=== PATIENT | female | born 1980 | race Caucasian/White ===

== ENCOUNTER → 2017-10-24 | Outpatient (CLI) | payer OTHER ==
[~2017-10-24] MED LIST: CALC500T6 PO; CALC625T69 PO; GLUC100026 PO; LOR5/325 PO; VITAMIN B1 PO
--- NOTE | 2017-10-24 16:38 | RADIOLOGY IMAGING REPORT ---
FACILITY: [facility] - [place] PATIENT NAME: NEEL PIEDRA : [id number] MR: [id number] V: [id number] EXAM DATE: [id number] ORDERING PHYSICIAN: PRESLEY CULP TECHNOLOGIST: Ayla Lopez PROCEDURE:BILATERAL DIAGNOSTIC DIGITAL MAMMOGRAM WITH CAD ASSISTED INTERPRETATION & 3D TOMOSYNTHESIS COMPARISON:Prior mammograms 05/24/17, 11/19/16. INDICATIONS:6 MO F/U RIGHT BREAST AND NEW PALPABLE LESION UPPER OUTER QUADRANT LEFT BREAST. FINDINGS: Dense heterogeneous fibroglandular tissue is seen throughout the breasts. The parenchymal pattern has remained stable allowing for difference in mammographic technique & patient positioning. There is no demonstration of malignant appearing mass, malignant appearing calcifications or other secondary sign of malignancy in either breast. Today's Left breast Ultrasound revealed two cysts in the upper outer quadrant of the Left breast likely accounting for patient's palpable findings. Today's Right breast Ultrasound demonstrated the stability of the ovoid hypoechoic mass 8 o'clock position. DIAGNOSTIC CATEGORY 3--PROBABLY BENIGN FINDING. RECOMMENDATIONS: SIX MONTH FOLLOW-UP ULTRASOUND: RIGHT BREAST. IMPRESSION: BIRADS 3: Probably benign finding 6Month follow-up Right breast Ultrasound is recommended to document stability of the ovoid nodular density 8 o'clock position of the Right breast as detailed in Today's Right breast Ultrasound report. Dictated by: Alessia Campuzano M.D. on 10/24/2017 at 15:58 Transcribed by: [email or web address] on 10/24/2017 at 16:16 Approved by: Alessia Campuzano M.D. on 10/24/2017 at 16:37 [facility]
--- NOTE | 2017-10-25 14:42 | RADIOLOGY IMAGING REPORT ---
FACILITY: [facility] PATIENT NAME: NEEL PIEDRA : [id number] MR: [id number] V: [id number] EXAM DATE: [id number] ORDERING PHYSICIAN: PRESLEY CULP TECHNOLOGIST: Jane Burrell PROCEDURE:US RIGHT BREAST COMPARISON:Right Breast Ultrasound of 05/24/17 INDICATIONS:6 mo f/u Right breast mass 8:00 o'clock position FINDINGS: In the 8 o'clock position of the Right breast there is a well circumscribed ovoid hypoechoic nodule measuring 7.3 x 4.2 x 6.8mm relatively unchanged. In the 2 o'clock position of the Right breast there is a 6.3mm cyst. DIAGNOSTIC CATEGORY 3--PROBABLY BENIGN FINDING. RECOMMENDATIONS: SIX MONTH FOLLOW-UP ULTRASOUND: RIGHT BREAST. IMPRESSION: BIRADS 3: Probably benign finding Ovoid well circumscribed hypoechoic nodule 8 o'clock position of the Right breast appears relatively stable when compared to the prior study from 05/24/17. 6 month follow-up Right breast Ultrasound is recommended to document stability over a 2 year period given the solid nature. Dictated by: Alessia Campuzano M.D. on 10/24/2017 at 15:55 Transcribed by: LIZET on 10/25/2017 at 13:08 Approved by: Alessia Campuzano M.D. on 10/25/2017 at 14:41 [facility]
--- NOTE | 2017-10-25 14:43 | RADIOLOGY IMAGING REPORT ---
FACILITY: [facility] - [place] PATIENT NAME: NEEL PIEDRA : [id number] MR: [id number] V: [id number] EXAM DATE: [id number] ORDERING PHYSICIAN: PRESLEY CULP TECHNOLOGIST: Jane Burrell PROCEDURE:US LEFT BREAST COMPARISON:None. INDICATIONS:Palpable Lump Upper Outer Quadrant of the Left Breast. FINDINGS: There is a 5.2 x 2.5 x 6.3mm cyst in the 2 o'clock position of the Left breast and a 5.2 x 3.4 x 6.5mm cyst in the 1 o'clock position of the Left breast these finding likely account for patient's palpable abnormality. DIAGNOSTIC CATEGORY 2--BENIGN FINDING. RECOMMENDATIONS: CLINICAL EVALUATION. IMPRESSION: BIRADS 2: Benign finding There are 2 cysts identified in the 1 & 2 o'clock positions Left breast likely accounting for patient's palpable findings. Dictated by: Alessia Campuzano M.D. on 10/24/2017 at 15:53 Transcribed by: [email or web address] on 10/25/2017 at 10:21 Approved by: Alessia Campuzano M.D. on 10/25/2017 at 14:42 [facility]
== END ==
LOC: MAMO 01:39
PROVIDERS: ATTEND Obstetrics & Gynecology
DX: N60.02 Solitary cyst of left breast (principal); N63.13 Unspecified lump in the right breast, lower outer quadrant
CPT/HCPCS: 77066

== ENCOUNTER → 2018-05-08 | Outpatient (CLI) | payer OTHER ==
--- NOTE | 2018-05-09 11:27 | RADIOLOGY IMAGING REPORT ---
FACILITY: [facility] PATIENT NAME: NEEL PIEDRA : [id number] MR: [id number] V: [id number] EXAM DATE: [id number] ORDERING PHYSICIAN: PRESLEY CULP TECHNOLOGIST: Jeremy Lewis RDMS, [facility] PROCEDURE:US RIGHT BREAST COMPARISON:Right breast Ultrasound 10/24/17, 05/24/17, 11/19/16. INDICATIONS:6 MO F/U FINDINGS: There is a cluster of cysts in the 10 o'clock position of the Right breast 7cm from the nipple collectively measuring approximately 1.8 x 0.8cm. In the 7 o'clock position of the Right breast 3cm from the nipple there is a solid ovoid hypoechoic nodule measuring 7.4 x 4.3 x 6.6mm this nodule is wider than tall. There is no acoustic shadowing. This nodule appears to have remained stable when compared to the prior mammograms dating back to 11/19/16. A 6 month follow-up Right breast Ultrasound is recommended to document stability over a 2 year period. DIAGNOSTIC CATEGORY 3--PROBABLY BENIGN FINDING. RECOMMENDATIONS: SIX MONTH FOLLOW-UP ULTRASOUND: RIGHT BREAST. IMPRESSION: BIRADS 3: Probably benign finding. A 6 month follow-up Right breast Ultrasound is recommended to document stability of the ovoid hypoechoic mass 7 o'clock position of the Right breast as described above. Dictated by: Alessia Campuzano M.D. on 05/08/2018 at 16:43 Transcribed by: LIZET on 05/09/2018 at 8:10 Approved by: Alessia Campuzano M.D. on 05/09/2018 at 11:26 [facility]
== END ==
LOC: MAMO 00:28
PROVIDERS: ATTEND Obstetrics & Gynecology
DX: R92.2 Inconclusive mammogram (principal)

== ENCOUNTER → 2019-01-09 | Outpatient (CLI) | payer OTHER ==
--- NOTE | 2019-01-09 14:54 | RADIOLOGY IMAGING REPORT ---
FACILITY: [facility] [place] PATIENT NAME: NEEL PIEDRA : [id number] MR: [id number] V: [id number] EXAM DATE: ORDERING PHYSICIAN: PRESLEY CULP TECHNOLOGIST: Sabra Solomon RDMS(ABD,OBGYN,BR),RVT PROCEDURE:US RIGHT BREAST COMPARISON:Prior Right breast Ultrasound 05/08/18, 10/24/17, 05/24/17, 11/19/16 INDICATIONS:6M FU AREA SCANNED: Right breast was scanned in the 6-11 o'clock position FINDINGS: In the 10 o'clock position of the Right breast again noted is a cluster of simple appearing cysts. In the 7 o'clock position of the Right breast 3cm from the nipple again noted is an ovoid circumscribed hypoechoic nodule measuring approximately 7.7 x 4.4 x 7mm & is relatively unchanged in size when measured in the same tissue planes dating back to 11/19/16. The mass is wider than tall. There is no acoustic shadowing. This likely represents a fibroadenoma. DIAGNOSTIC CATEGORY 2--BENIGN FINDING. RECOMMENDATIONS: CLINICAL EVALUATION. IMPRESSION: BIRADS 2: Benign finding. Ovoid hypoechoic mass in the 7 o'clock position Right breast has remained relatively stable when compared to 11/19/16 & likely represents a fibroadenoma. Dictated by: Alessia Campuzano M.D. on 01/09/2019 at 13:41 Transcribed by: [email or web address] on 01/09/2019 at 14:27 Approved by: Alessia Campuzano M.D. on 01/09/2019 at 14:51 [facility]
== END ==
LOC: US 00:45
PROVIDERS: ATTEND Obstetrics & Gynecology
DX: N63.10 Unspecified lump in the right breast, unspecified quadrant (principal); N63.20 Unspecified lump in the left breast, unspecified quadrant